=== PATIENT | female | born 1965 | race Caucasian/White ===

== ENCOUNTER → 2018-03-26 | Outpatient (CLI) | payer BC | LOC: MC.RAD 10:57 | DX: Z12.31 Encounter for screening mammogram for malignant neoplasm of breast (principal) ==

== ENCOUNTER → 2020-07-29 | Outpatient (CLI) | payer BC | LOC: MC.RAD 08:45 | DX: Z12.31 Encounter for screening mammogram for malignant neoplasm of breast (principal) ==

== ENCOUNTER 2022-03-19 11:49 | Inpatient (IN) | payer BC ==
[~2022-03-19] VITALS: Ht 172.7 cm; Wt 90.2 kg
[2022-03-19] VITALS (337 sets, daily range): BP systolic 103–124; BP diastolic 82–97; PULSE 62–116; TEMP 97.8–98; O2SAT 88–100
[2022-03-19 12:40] LABS: BASO % 0.3 % (0.0-2.0); EOS # 0.1 K/mm3 (0.0-0.7); EOS % 0.7 % (0.0-4.0); GRAN # 4.6 K/mm3 (1.4-6.5); GRAN % 61.7 % (42.2-75.2); HEMATOCRIT 46.7 % (37.0-47.0); HEMOGLOBIN 15.5 g/dl (12.5-16.0); LYMPH # 2.1 K/mm3 (1.2-3.4); LYMPH % 28.6 % (20.0-51.0); MEAN CELL VOLUME 87 fl (80.0-100.0); MEAN CORPUSCULAR HEMOGLOBIN 29 pg (27-31); MEAN CORPUSCULAR HGB CONC 33 g/dl (33.0-37.0); MEAN PLATELET VOLUME 9.5 fl (7.4-10.4); MONO # 0.6 K/mm3 (0.1-0.6); MONO % 8.4 % (1.7-9.3); PLATELET COUNT 266 K/mm3 (130-400); RED BLOOD COUNT 5.37 M/mm3 (4.10-5.30); REDCELL DISTRIBUTION WIDTH-CV 11.9 % (11.5-14.5)
[2022-03-19 12:51] LABS: ALBUMIN 4.1 gm/dL (3.5-5.0); BILIRUBIN,TOTAL 0.4 mg/dL (0.2-1.2); CALCIUM 9.5 mg/dL (8.4-10.2); CREATININE, serum 1.08 mg/dL (0.57-1.11); POTASSIUM 4.7 mmol/L (3.5-4.5); TOTAL PROTEIN 7.4 gm/dL (6.2-8.1)
[2022-03-19 12:52] LABS: PARTIAL THROMBOPLASTIN TIME 37.4 SECONDS (26.0-37.0)
[2022-03-19 12:56] LABS: TROPONIN-I 0.016 ng/mL (0.00-0.033)
--- NOTE | 2022-03-19 16:05 | NUR ---
Arrived to the unit from the ED. Alert and oriented and in no distress. Attached to all monitors and showing A-fib rvr. Hospitalist notified of arrival.
[2022-03-19] MEDS ORDERED: VITAMIN C500 MG PO (16:30)
[2022-03-19] MEDS ORDERED: VITAMIN D31000 I1 (16:31)
[2022-03-19] MEDS ORDERED: CENTRUM SILVER1 TAB (16:31)
[2022-03-19] MEDS ORDERED: MELATONIN5 M1 SL (16:32)
[2022-03-19] MEDS ORDERED: NIGHT TIME SLEE25 MG (16:34)
--- NOTE | 2022-03-19 20:45 | NUR ---
ASSESSMENT COMPLETE AND CHARTED. DENIES NEEDS. CALL LIGHT IN REACH.
[2022-03-19 22:10] LABS: PARTIAL THROMBOPLASTIN TIME 67.4 SECONDS (26.0-37.0)
[2022-03-20] VITALS (470 sets, daily range): BP systolic 120–134; BP diastolic 73–86; PULSE 62–66; TEMP 97.8–98.1; O2SAT 87–100
[2022-03-20 04:24] LABS: BASO % 0.3 % (0.0-2.0); EOS # 0.1 K/mm3 (0.0-0.7); GRAN # 3.1 K/mm3 (1.4-6.5); GRAN % 45.5 % (42.2-75.2); HEMATOCRIT 42.2 % (37.0-47.0); HEMOGLOBIN 14.1 g/dl (12.5-16.0); LYMPH # 3.2 K/mm3 (1.2-3.4); LYMPH % 46.3 % (20.0-51.0); MEAN CELL VOLUME 88 fl (80.0-100.0); MEAN CORPUSCULAR HEMOGLOBIN 29 pg (27-31); MEAN CORPUSCULAR HGB CONC 33 g/dl (33.0-37.0); MEAN PLATELET VOLUME 9.5 fl (7.4-10.4); MONO # 0.5 K/mm3 (0.1-0.6); MONO % 6.6 % (1.7-9.3); PLATELET COUNT 221 K/mm3 (130-400); RED BLOOD COUNT 4.82 M/mm3 (4.10-5.30); REDCELL DISTRIBUTION WIDTH-CV 12.1 % (11.5-14.5)
[2022-03-20 04:43] LABS: CALCIUM 8.8 mg/dL (8.4-10.2); CREATININE, serum 0.95 mg/dL (0.57-1.11); MAGNESIUM 2.1 mg/dL (1.6-2.6)
--- NOTE | 2022-03-20 06:25 | NUR ---
PATIENT HAD UNEVENTFUL NIGHT RESTING IN BED THIS AM. CALL LIGHT IN REACH.
--- NOTE | 2022-03-20 07:00 | NUR ---
PT RESTING IN BED. PT ON HEPARIN DRIP AND CARDIZEM JUST DCD BY DR CHILDERS. VSS. PT IS IN SR. PT HAS CALL LIGHT AND INSTRUCTED TO CALL WITH ALL NEEDS.
--- NOTE | 2022-03-20 07:25 | NUR ---
REPORT GIVEN TO LEYLA TALBERT
[2022-03-20] MEDS ORDERED: TAMBOCOR50 MG PO (11:27)
[2022-03-20] MEDS ORDERED: ASPIRIN E.C. 8181 MG PO (11:27)
[2022-03-20] MEDS ORDERED: TOPROL XL 25MG25 MG PO (11:27)
--- NOTE | 2022-03-20 11:45 | NUR ---
IV AND TELE DCD. DISCHARGE INSTRUCTIONS AND NEW MEDICATIONS DISUCSSED WITH PT. ALL QUESTIONS ANSWERED. PT ESCORTED TO ENTRANCE WITH FOR DISCHARGE.
== END 2022-03-20 11:50 | disposition home or self-care (01) | DRG 310 ==
LOC: COL.ER 11:49 → ICU 13:14
PROVIDERS: Emergency Medicine; ADMIT Hospitalist
DX: I48.0 Paroxysmal atrial fibrillation (principal); I45.6 Pre-excitation syndrome; I07.1 Rheumatic tricuspid insufficiency; Z88.8 Allergy status to other drugs, medicaments and biological substances
CPT/HCPCS: J1644

== ENCOUNTER → 2022-04-28 | Outpatient (CLI) | payer BC ==
[~2022-04-28] MED LIST: ASPIRIN E.C. 8181 MG PO; CENTRUM SILVER1 TAB; MELATONIN5 M1 SL; NIGHT TIME SLEE25 MG; TAMBOCOR50 MG PO; TOPROL XL 25MG25 MG PO; VITAMIN C500 MG PO; VITAMIN D31000 I1
== END ==
LOC: COL.RAD 09:47
DX: S79.811A Other specified injuries of right hip, initial encounter (principal); X58.XXXA Exposure to other specified factors, initial encounter
CPT/HCPCS: J3301; Q9967

== ENCOUNTER → 2022-08-26 | Outpatient (CLI) | payer BC | LOC: COL.RAD 07:53 | DX: M16.11 Unilateral primary osteoarthritis, right hip (principal) | CPT/HCPCS: J3301; Q9967 ==